=== PATIENT | female | born 1975 | race Caucasian/White ===

== ENCOUNTER 2017-07-12 18:21 | Emergency (ER) | payer OTHER ==
[~2017-07-12] VITALS: Ht 165.1 cm; Wt 92.1 kg
[2017-07-12] MEDS ORDERED: LISINOPRIL20 MG PO (18:36)
[2017-07-12] MEDS ORDERED: LAMICTAL100 MG PO (18:36)
[2017-07-12] MEDS ORDERED: EFFEXOR 5050 MG/1 T1 PO (18:36)
[2017-07-12 19:04] LABS: HEMATOCRIT 34.9 % (37.0-47.0); HEMOGLOBIN 11.2 gm/dL (12.0-15.0); MCH 22.4 pg (26.0-34.0); MCHC 32.2 g/dL (28.0-37.0); MCV 69.5 fL (80.0-100.0); MPV 8.4 fl. (7.2-11.1); NUCLEATED RBCS 0 /100WBC; PLATELET COUNT* 437 thou/uL (150-400); RBC 5.02 mil/uL (4.20-5.00); RDW-CV 16.1 % (10.5-14.5); WBC 8.9 thou/uL (4.0-11.0)
[2017-07-12 19:07] LABS: URINE BILIRUBIN NEGATIVE (Negative); URINE BLOOD TRACE (Negative); URINE CLARITY CLEAR; URINE COLOR YELLOW; URINE GLUCOSE-RANDOM NEGATIVE (Negative); URINE KETONES NEGATIVE (Negative); URINE LEUKOCYTES-REFLEX NEGATIVE (Negative); URINE NITRITE-REFLEX NEGATIVE (Negative); URINE PROTEIN NEGATIVE (Negative); URINE UROBILINOGEN 0.2 E.U./dl (0.2-1.0)
[2017-07-12 19:13] LABS: CALCIUM 8.9 mg/dL (8.5-10.1); POTASSIUM 3.5 mmol/L (3.5-5.1)
[2017-07-12 19:23] LABS: ALBUMIN 3.2 g/dL (3.4-5.0); TOTAL BILIRUBIN 0.1 mg/dL (<0.1-1.0); TOTAL PROTEIN 7.6 g/dL (6.4-8.2)
[2017-07-12 19:57] LABS: INFLUENZA B ANTIGEN None Detected (None Detect)
[2017-07-12] MEDS ORDERED: OSELB75 PO (20:35)
[2017-07-12] MEDS ORDERED: NORCO 5-325 TA1 EAC1 PO (20:38)
[2017-07-12] MEDS ORDERED: PROMETHAZINE-D118 ML PO (20:38)
[2017-07-12 21:34] VITALS: BP 146/84
--- NOTE | 2017-07-13 12:21 | EKG ---
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
[2017-07-14 13:22] LABS: ABSOLUTE BASOPHILS 0.1 thou/uL (0.0-0.2); ABSOLUTE EOSINOPHILS 0.3 thou/uL (0.0-0.7); ABSOLUTE LYMPHOCYTES 0.8 thou/uL (0.8-5.3); ABSOLUTE MONOCYTES 0.3 thou/uL (0.0-1.2); ABSOLUTE NEUTROPHILS 7.5 thou/uL (1.6-8.1); HYPOCHROMASIA 2+; OVALOCYTES 1+; PLATELET ESTIMATE INCREASED
== END 2017-07-12 21:36 | disposition home or self-care (01) ==
LOC: M.ERS 18:21
PROVIDERS: Physician Assistant
DX: J11.1 Influenza due to unidentified influenza virus with other respiratory manifestations (principal); Z88.2 Allergy status to sulfonamides

== ENCOUNTER 2020-02-22 07:11 | Emergency (ER) | payer OTHER ==
[~2020-02-22] VITALS: Ht 162.6 cm; Wt 108.9 kg
[~2020-02-22 07:11] MED LIST: EFFEXOR 5050 MG/1 T1 PO; LAMICTAL100 MG PO; LISINOPRIL20 MG PO; NORCO 5-325 TA1 EAC1 PO; OSELB75 PO; PROMETHAZINE-D118 ML PO
[2020-02-22 07:44] LABS: HEMATOCRIT 42.1 % (37.0-47.0); HEMOGLOBIN 13.7 gm/dL (12.0-15.0); MCH 23.4 pg (26.0-34.0); MCHC 32.5 g/dL (28.0-37.0); RBC 5.85 mil/uL (4.20-5.00); WBC 13.5 thou/uL (4.0-11.0)
[2020-02-22] MEDS ORDERED: VENLAFAXINE HCL75 MG PO (07:44)
[2020-02-22] MEDS ORDERED: LISINOPRIL-HCT1 EACH PO (07:44)
[2020-02-22] MEDS ORDERED: MACROBID 100 M100 MG PO (07:44)
[2020-02-22 07:49] LABS: CALCIUM 8.4 mg/dL (8.5-10.1); CREATININE 1.7 mg/dL (0.6-1.3)
[2020-02-22 07:51] LABS: POTASSIUM 2.9 mmol/L (3.5-5.1)
[2020-02-22 07:54] LABS: ALBUMIN 3.7 g/dL (3.4-5.0); TOTAL BILIRUBIN 0.5 mg/dL (<0.1-1.0)
[2020-02-22 08:15] LABS: ALCOHOL 309 mg/dL (<10); SALICYLATE < 2.8 mg/dL (2.8-20.0)
[2020-02-22 08:16] LABS: ACETAMINOPHEN < 2 ug/mL (10-30)
[2020-02-22 10:25] LABS: URINE BILIRUBIN NEGATIVE (Negative); URINE BLOOD 1+ (Negative); URINE CLARITY CLEAR; URINE COLOR YELLOW; URINE GLUCOSE-RANDOM NEGATIVE (Negative); URINE KETONES 1+ (Negative); URINE LEUKOCYTES NEGATIVE (Negative); URINE NITRITE NEGATIVE (Negative); URINE PROTEIN NEGATIVE (Negative); URINE SPECIFIC GRAVITY 1.025 (1.005-1.030); URINE UROBILINOGEN 0.2 E.U./dl (0.2-1.0)
[2020-02-22 10:33] LABS: AMP/METHAMP Negative (Negative); BARBITURATES Negative (Negative); BENZODIAZEPINES Negative (Negative); COCAINE Negative (Negative); METHADONE Negative (Negative); OPIATES Negative (Negative); PCP Negative (Negative); THC Negative (Negative)
[2020-02-22 16:26] VITALS: BP 146/82
== END 2020-02-22 16:27 | disposition home or self-care (01) ==
LOC: M.ERS 07:11
PROVIDERS: Personal Emergency Response Attendant
DX: F10.920 Alcohol use, unspecified with intoxication, uncomplicated (principal); R45.851 Suicidal ideations; I10 Essential (primary) hypertension; Z88.2 Allergy status to sulfonamides; Z79.899 Other long term (current) drug therapy; Z98.890 Other specified postprocedural states; Y90.9 Presence of alcohol in blood, level not specified